=== PATIENT | female | born 1975 | race Caucasian/White ===

== ENCOUNTER → 2017-02-13 | Outpatient (CLI) | payer BC ==
[~2017-02-13] MED LIST: FLAGYL500 MG PO; OMNICEF300 MG PO; ZOFRAN ODT4 MG SL
== END | disposition home or self-care (01) ==
LOC: CT 10:57
DX: M54.5 Low back pain (principal); R51 Headache; M25.551 Pain in right hip; R20.0 Anesthesia of skin; Z87.891 Personal history of nicotine dependence; Z98.2 Presence of cerebrospinal fluid drainage device

== ENCOUNTER 2017-07-23 09:12 | Emergency (ER) | payer BC ==
[~2017-07-23] VITALS: Ht 165.1 cm; Wt 63.5 kg
== END 2017-07-23 13:36 | disposition home or self-care (01) ==
LOC: ED 09:12
DX: T85.01XA Breakdown (mechanical) of ventricular intracranial (communicating) shunt, initial encounter (principal)

== ENCOUNTER 2020-03-18 20:00 | Emergency (ER) | payer BC ==
[~2020-03-18] VITALS: Ht 165.1 cm; Wt 65.8 kg
[2020-03-18 21:38] LABS: BASO # 0.1 10*3/uL (0.0-0.1); BASO % 0.3 % (0.0-1.0); EOS # 0.1 10*3/uL (0.0-0.4); EOS % 0.6 % (1.0-4.0); HEMATOCRIT 45.2 % (37.0-47.0); LYMPH % 6.8 % (27.0-41.0); MEAN CELL VOLUME 92.2 fl (81.0-99.0); MEAN CORPUSCULAR HGB 29.8 pg (27.0-31.0); MEAN CORPUSCULAR HGB CONC 32.3 g/dl (33.0-37.0); MEAN PLATELET VOLUME 10.5 fl (9.6-12.3); MONO # 0.6 10*3/uL (0.1-1.0); MONO % 4.1 % (3.0-9.0); NEUT # 13.4 10*3/uL (2.3-7.9); NEUT % 87.9 % (47.0-73.0); PLATELET COUNT AUTOMATED 283 10*3/uL (130-400); WHITE BLOOD COUNT 15.2 10*3/uL (4.8-10.8)
[2020-03-18 21:53] LABS: ALBUMIN 3.9 gm/dl (3.1-4.5); ALKALINE PHOSPHATASE 122 U/L (45-117); BUN 12 mg/dl (7-24); CHLORIDE 108 mmol/L (98-107); CREATININE 0.87 mg/dL (0.55-1.02); LIPASE 87 U/L (73-393); SGOT/AST 18 IU/L (3-35); SGPT/ALT 21 U/L (12-78); SODIUM 139 mmol/L (136-145); TOTAL PROTEIN 8.2 gm/dL (6.4-8.2)
[2020-03-19] LABS: BACTERIA TRACE; BILIRUBIN NEGATIVE (NEGATIVE); BLOOD TRACE-INTACT (NEGATIVE); CLARITY CLEAR (CLEAR); COLOR YELLOW (YELLOW); GLUCOSE NEGATIVE (NEGATIVE); KETONE NEGATIVE (NEGATIVE); LEUKO ESTERASE NEGATIVE (NEGATIVE); MUCOUS 1+; NITRITE NEGATIVE (NEGATIVE); PH 8.5 (5.0-9.0); SPECIFIC GRAVITY 1.005 (1.005-1.030); UROBILINOGEN 0.2 E.U./dl (0.2-1.0)
== END 2020-03-19 02:15 | disposition short-term general hospital (02) ==
LOC: ED 20:00
PROVIDERS: Physician Assistant
DX: K56.609 Unspecified intestinal obstruction, unspecified as to partial versus complete obstruction (principal)

== ENCOUNTER → 2022-10-13 | Outpatient (CLI) | payer BC | LOC: LAB 08:04 | PROVIDERS: ATTEND Physician Assistant Medical | DX: M79.10 Myalgia, unspecified site (principal); M25.50 Pain in unspecified joint; E55.9 Vitamin D deficiency, unspecified ==

== ENCOUNTER 2024-09-13 07:10 | Emergency (ER) | payer BC ==
[~2024-09-13] VITALS: Wt 65.8 kg
[2024-09-13] MEDS ORDERED: IOHEXOL 300 MG/ML 100 ML VIAL IV ONE (07:30)
[2024-09-13 07:43] LABS: BASO % 0.3 % (0.0-1.0); EOS # 0.1 10*3/uL (0.0-0.4); EOS % 0.9 % (1.0-4.0); HEMATOCRIT 43.3 % (37.0-47.0); LYMPH # 1.4 10*3/uL (1.3-4.4); MEAN CELL VOLUME 89.5 fl (81.0-99.0); MEAN CORPUSCULAR HGB 29.1 pg (27.0-31.0); MEAN CORPUSCULAR HGB CONC 32.6 g/dl (33.0-37.0); MEAN PLATELET VOLUME 10.7 fl (9.6-12.3); MONO # 0.6 10*3/uL (0.1-1.0); MONO % 4.2 % (3.0-9.0); NEUT % 84.2 % (47.0-73.0); PLATELET COUNT AUTOMATED 210 10*3/uL (130-400); RED BLOOD COUNT 4.84 10*6/uL (4.10-5.10); RED CELL DISTRI WIDTH 13.2 % (0-14.5); WHITE BLOOD COUNT 14.3 10*3/uL (4.8-10.8)
[2024-09-13 08:04] LABS: ALKALINE PHOSPHATASE 97 U/L (46-116); BUN 16 mg/dl (9-23); CHLORIDE 107 mmol/L (98-107); LIPASE 32 U/L (12-53); POTASSIUM 3.8 mmol/L (3.4-5.1); SGPT/ALT 9 U/L (5-49); TOTAL PROTEIN 7.1 gm/dL (6.0-8.0)
[2024-09-13 09:18] LABS: BILIRUBIN Negative (Negative); BLOOD Negative (Negative); CLARITY Clear (Clear); COLOR Yellow (Yellow); GLUCOSE Negative (Negative); KETONE Negative (Negative); LEUKO ESTERASE Negative (Negative); NITRITE Negative (Negative); PH 6.5 (4.5-8.0); SPECIFIC GRAVITY >= 1.030 (1.001-1.030); UROBILINOGEN 0.2 E.U./dl (0.0-1.0)
[2024-09-13 10:04] LABS: BACTERIA 1+; RBC 0-2 rbc/hpf (0-2)
[2024-09-13] MEDS ORDERED: CIPRO500 MG PO (16:18)
== END 2024-09-13 16:14 | disposition home or self-care (01) ==
LOC: ED 07:10
PROVIDERS: Internal Medicine
DX: N39.0 Urinary tract infection, site not specified (principal); R11.2 Nausea with vomiting, unspecified; Z53.29 Procedure and treatment not carried out because of patient's decision for other reasons; Z98.890 Other specified postprocedural states